=== PATIENT | female | born 1980 | race Caucasian/White ===

== ENCOUNTER 2016-09-28 08:16 | Day surgery (SDC) | payer OTHER ==
--- NOTE | 2016-09-23 13:52 | HP ---
PREOPERATIVE HISTORY AND PHYSICAL: DATE OF SURGERY/ADMISSION: 09/28/16 [facility] ATTENDING SURGEON: Dr. Lewis (DICTATED BY LYNNE JEAN-BAPTISTE) PROCEDURE: Right wrist carpal tunnel release. CHIEF COMPLAINT: Right hand numbness and tingling. HISTORY OF PRESENT ILLNESS: This is a 35-year-old female who complains of stiffness, pain, swelling, numbness and tingling in her right hand for the past several months. She does not recall any specific injury. It bothers her when lifting and also awakens her at night. She has tried wearing a wrist brace which was not very helpful. She has also used ibuprofen and tramadol in the past for this problem, but she only gets a bit of relief with the medications. An EMG nerve conduction study done on the right upper extremity showed evidence of right carpal tunnel syndrome. The patient is interested in proceeding with surgical intervention at this time in the form of a right wrist carpal tunnel release. PAST MEDICAL HISTORY: Unremarkable. PAST SURGICAL HISTORY: None. CURRENT MEDICATIONS: 1. Ibuprofen 600 mg 1 tab q.6 hours p.r.n. pain. 2. Tramadol HCL 50 mg 1 to 2 tabs q.6 hours p.r.n. pain. ALLERGIES: No known drug allergies. FAMILY MEDICAL HISTORY: Unremarkable. SOCIAL HISTORY: The patient is a [id number] mother. She denies tobacco use, recreational drug use, and alcohol use. REVIEW OF SYSTEMS: General: Negative for fevers, chills, or night sweats. No known anesthesia problems. HEENT: Negative for headache, lightheadedness, or syncopal episodes. Integumentary: Negative for abrasions, lesions, or open wounds. Cardiothoracic: Negative for hypertension, chest pain, palpitations, or edema. Pulmonary: Negative for shortness of breath with exertion, chronic cough, or COPD. GI: Negative for nausea, vomiting, diarrhea, constipation or GERD. : Negative for nocturia, urinary frequency, urgency, history of UTIs, or kidney problems. Musculoskeletal: Positive for current complaint. Negative for chronic or intermittent back pain or history of fractures. Neurological: Negative for history of seizure, stroke, or epilepsy. Endocrine : Negative for diabetes and thyroid issues. Hematologic: Negative for easy bruising, anemia, excessive bleeding, or history of DVT. Infectious Disease: Negative for history of MRSA, hepatitis C, or HIV. PHYSICAL EXAMINATION GENERAL: Well-developed, well-nourished 35-year-old female, in no acute distress. VITALS SIGNS: Height 5 feet 5 inches, weight 167 pounds. Pulse rate 68, blood pressure 100/68. HEENT: Normocephalic, atraumatic. Pupils are equal, round, and reactive to light and accommodation. Extraocular movements are intact. NECK: Supple. No palpable lymph nodes. Throat is clear. PULMONARY: Lungs are clear to auscultation bilaterally. No wheezes, rales, or rhonchi. CARDIOVASCULAR: Regular rate and rhythm. S1 and S2. No murmurs, rubs, or gallops. No edema. ABDOMEN: Positive bowel sounds, soft, nontender. MUSCULOSKELETAL: On exam of the right hand, she has very mild swelling of the right hand compared to the left. She has weakness with thumb abduction on the right. She cannot make a full tight fist on the right. She has positive median nerve compression test and a Tinel sign at the wrist, which gives her tingling and numbness in the median nerve distribution. PERIPHERAL VASCULAR: 2+ radial and ulnar pulses. Negative Alexander test. NEUROLOGICAL: Alert and oriented x3. Cranial nerves II through XII are intact. Sensation is intact to light touch. IMAGING STUDIES: EMG nerve conduction study shows right carpal tunnel syndrome. IMPRESSION: Right carpal tunnel syndrome. PLAN: The patient is scheduled to undergo a right wrist carpal tunnel release with Dr. Lewis on 09/28/16. She will follow up in the office 10 to 14 days postop for followup and suture removal. A prescription for Ultracet was e- scribed to the patient's pharmacy for postoperative pain management. LYNNE JEAN-BAPTISTE [id number]/[facility] #: [id number] DENISE
[~2016-09-28 08:16] MED LIST: Buffered Lidocaine 0.9% SYRIN* 5 ML/SYR SYRINGE INTRADERM ONE; Famotidine IV* 10 MG/ML 2 ML (20 mg) IV ONE
[2016-09-28] MEDS ORDERED: Acetaminophen TAB* 325 MG PO PRN (08:23)
[2016-09-28] MEDS ORDERED: DiMENhydriNATE IV* 50 MG/ML VIAL IV PUSH PRN (08:23)
[2016-09-28] MEDS ORDERED: Ondansetron INJ* 2 MG/ML VIAL ONE (08:33)
[2016-09-28] MEDS ORDERED: Lidocaine 2% PF * 5 ML VIAL ONE (08:33)
[2016-09-28] MEDS ORDERED: Propofol* 10 MG/ML 20 ML BTL IV PUSH ONE (08:33)
[2016-09-28] MEDS ORDERED: fentaNYL* 50 MCG/ML 2 ML VIAL (100 MCG VIAL) ONE (08:33)
[2016-09-28] MEDS ORDERED: Midazolam* 1 MG/ML 5 ML VIAL (5 MG) ONE (08:33)
[2016-09-28] MEDS ORDERED: Ketorolac INJ* 30 MG/ML 1 ML VIAL ONE (08:33)
[2016-09-28] MEDS ORDERED: Buffered Lidocaine 0.9% SYRIN* 5 ML/SYR SYRINGE ONE (08:40)
[2016-09-28] MEDS ORDERED: Famotidine IV* 10 MG/ML 2 ML (20 mg) ONE (08:40)
[2016-09-28 10:35] VITALS: BP 123/79
--- NOTE | 2016-09-29 03:27 | OP ---
DATE OF OPERATION: 09/28/16 [facility] DATE OF : 80 SURGEON: Rachel Lewis MD EQUIPMENT SERVICES ASSOCIATE: LYNNE Cruz. ANESTHESIOLOGIST: Evelin Sarabia MD ANESTHESIA: Local MAC. PRE-OP DIAGNOSIS: Right carpal tunnel syndrome. POST-OP DIAGNOSIS: Right carpal tunnel syndrome. OPERATIVE PROCEDURE: Right carpal tunnel release. ESTIMATED BLOOD LOSS: Zero. TOURNIQUET TIME: 5 minutes. INDICATIONS FOR PROCEDURE: Devyn is a 35-year-old female with numbness and tingling in the median nerve distribution of her right hand. She presents for right carpal tunnel release. DESCRIPTION OF PROCEDURE: The patient was brought to the operating room, was given a sedation anesthetic and a local infiltration of 10 cc of 1% plain lidocaine in the palm of her right hand. The skin of her right hand and forearm was prepped and draped in the usual sterile fashion. The hand and forearm were exsanguinated and the tourniquet elevated to 250 mmHg. A longitudinal incision was made in the palm in line with the ring finger, dissected through the subcutaneous tissue sharply with a knife down to the transverse carpal ligament. The ligament was divided sharply with the knife and then more proximally with the scissors. The nerve was dissected free from the surrounding tissue and there was an area of moderate compression in the mid- portion of the ligament. The wound was irrigated. The skin edges were reapproximated with 4-0 Nylon suture. The wound was dressed with Xeroform, 4x4 , Webril, and Tarik wrap. The patient tolerated the procedure well and was brought to the recovery room in good condition. [id number]/[facility] #: [id number] [facility]
== END 2016-09-28 11:04 | disposition home or self-care (01) ==
LOC: OREAST 08:16
PROVIDERS: ATTEND Orthopaedic Surgery
DX: G56.01 Carpal tunnel syndrome, right upper limb (principal)
CPT/HCPCS: J1885; J2250; J2405; J2704; J3010

== ENCOUNTER 2019-01-01 08:19 | Day surgery (SDC) | payer OTHER ==
[~2019-01-01 08:19] MED LIST changes: -Buffered Lidocaine 0.9% SYRIN* 5 ML/SYR SYRINGE INTRADERM ONE; +Buffered Lidocaine 1% SYRIN* 1 ML/SYRINGE INTRADERM ONE; +Lactated Ringers 1000 ML Bag* 1,000 ML IV SCH
[2019-01-01] MEDS ORDERED: Lidocaine 1% MPF ** 5 ML VIAL ONE (08:43)
[2019-01-01] MEDS ORDERED: ROPIVACAINE 5 MG/ML 30 ML BTL (0.5%) ONE (08:43)
[2019-01-01] MEDS ORDERED: ceFAZolin 2 GM PREMIX in ORs 2 GM/50 ML BAG ONE (08:51)
[2019-01-01] MEDS ORDERED: Famotidine IV* 10 MG/ML 2 ML (20 mg) ONE (08:51)
[2019-01-01] MEDS ORDERED: Midazolam* 1 MG/ML 5 ML VIAL (5 MG) ONE (08:57)
[2019-01-01] MEDS ORDERED: fentaNYL* 50 MCG/ML 2 ML VIAL (100 MCG VIAL) ONE (10:22)
[2019-01-01] MEDS ORDERED: Dexamethasone IV* 4 MG/ML 1 ML (4 MG) ONE (10:47)
[2019-01-01] MEDS ORDERED: Propofol* 10 MG/ML 20 ML BTL ONE (10:47)
[2019-01-01] MEDS ORDERED: DiMENhydriNATE IV* 50 MG/ML VIAL ONE (10:47)
[2019-01-01] MEDS ORDERED: Lidocaine 2% PF * 5 ML VIAL ONE (10:47)
[2019-01-01] MEDS ORDERED: Succinylcholine* 20 MG/ML 10 ML VIAL ONE (10:47)
[2019-01-01] MEDS ORDERED: Ketorolac INJ* 30 MG/ML 1 ML VIAL ONE (10:47)
[2019-01-01] MEDS ORDERED: Ondansetron INJ* 2 MG/ML VIAL ONE (10:47)
[2019-01-01] MEDS ORDERED: Acetaminophen TAB* 325 MG PO PRN (11:21)
[2019-01-01] MEDS ORDERED: DiMENhydriNATE IV* 50 MG/ML VIAL IV PUSH PRN (11:21)
[2019-01-01 13:18] VITALS: BP 132/88
--- NOTE | 2019-01-01 21:44 | OP ---
CC: PCP; Dr. Guerra * DATE OF OPERATION: 01/01/[address] [facility] DATE OF : 80 SURGEON: Román Servin MD BONDED STRUCTURES REPAIRER: LYNNE Drew. An political science research assistant was needed for the entirety of the case to help with positioning, retraction, and was utilized throughout all portions of the case. ANESTHESIOLOGIST: Dr. Sarabia. ANESTHESIA: General with interscalene block. PRE-OP DIAGNOSIS: Right shoulder partial-thickness tear of the rotator cuff with bicipital tendinitis. POST-OP DIAGNOSIS: Right shoulder partial-thickness tear of the rotator cuff with bicipital tendinitis. OPERATIVE PROCEDURE: Right shoulder arthroscopy with: 1. Extensive glenohumeral debridement. 2. Subacromial decompression with acromioplasty. 3. Rotator cuff repair using Regeneten patch. COMPLICATIONS: None. ESTIMATED BLOOD LOSS: Minimal. DISPOSITION: Stable. INDICATIONS: Devyn Mayen is a very pleasant 38-year-old female with persistent shoulder pain. I have been following her for over a year. She has a partial- thickness tear of the rotator cuff. She has failed conservative management including physical therapy, anti-inflammatories, ice, heat, and multiple injections. She has elected to proceed with surgical treatment. Risks and benefits were discussed at length and included, but are not limited to bleeding ; infection; damage to nerves, vessels, surrounding structures; wound nonhealing ; persistent pain; need for further surgery; scarring; stiffness; incomplete relief of symptoms; risks of anesthesia. After extensive discussion of the risks and benefits of operative versus nonoperative treatment, she has elected to proceed with operative treatment. DESCRIPTION OF PROCEDURE: The patient was greeted in the preoperative area by the attending surgeon. Correct extremity was marked and consent was confirmed. The plan again was reviewed with her , who is an building energy retrofit technician for her. The patient underwent interscalene nerve block, after which she was brought back to the operating suite where she was placed in supine position on the operating table. She then underwent general anesthesia and endotracheal intubation, after which the patient was positioned in the left lateral decubitus position. All bony prominences were padded. She was secured with a pegboard. The right arm was draped unsterile with 10 pounds of traction. The right shoulder was prepped and draped in the usual sterile fashion beginning with chlorhexidine soap, scrub, and alcohol wipe, and a final prep with ChloraPrep. After appropriate surgical pause indicating side, site, procedure, and administration of antibiotics, the standard postero-lateral portal was made sharply with 11-blade. The scope was introduced into the joint and the joint was examined. There was abundant synovitis and erythema that was present. The biceps had unstable fraying and tearing and synovitis. The undersurface of the rotator cuff had small partial-thickness tearing. The inferior recess was intact. There was significant synovitis and 0 to 1 changes of the glenohumeral joint. The subscap was intact. No full-thickness tears. The anterior portal was made in an outside-in fashion. Shaver was used to debride back the anterior , posterior, and superior labrum. The biceps was then tenotomized. The remainder of the debridement was done. Once the debridement was done, attention was directed to the subacromial space. With the scope positioned in the subacromial space, the lateral portal was made in an outside-in fashion. Shaver was used to debride back the bursa that was more prevalent posteriorly. The undersurface of the acromion was skeletonized using electrocautery device. This revealed an anterolateral spur. The 4-0 oval lauro was then used to do a small acromioplasty. All loose debris was removed at this point and attention was directed to the cuff. There was some partial-thickness bursal- sided tearing and there was documentation also on the MRI. The decision was made to treat this with a Regeneten patch for rotator cuff repair. A size medium patch was then brought into the field and placed under arthroscopic visualization through a separate cannula. The graft was secured medially with tendon sana and then laterally with bone sana with good purchase. The graft appeared to be well secured. Final images were obtained, after which the wounds were copiously irrigated with sterile saline. The portals were closed with 3-0 nylon. Sterile dressings were applied. Cryo/Cuff and a regular sling were applied. She was awoken from anesthesia and transferred to the PACU in stable condition. POSTOPERATIVE PLAN: She will be nonweightbearing. She will be discharged on pain medication. DVT prophylaxis was considered, but deferred due to no previous personal or family history. I will see the patient back in 10 to 14 days. [id number]/[facility] #: [id number] [facility]
== END 2019-01-01 12:20 | disposition home or self-care (01) ==
LOC: OREAST 08:19
PROVIDERS: ATTEND Orthopaedic Surgery
DX: M75.111 Incomplete rotator cuff tear or rupture of right shoulder, not specified as traumatic (principal); M75.21 Bicipital tendinitis, right shoulder; M06.9 Rheumatoid arthritis, unspecified; Z87.442 Personal history of urinary calculi; G89.18 Other acute postprocedural pain
CPT/HCPCS: 81025; C1713; J0330; J0690; J1100; J1240; J1885; J2250; J2405; J2704; J2795; J3010